=== PATIENT | male | born 1990 | race Caucasian/White ===

== ENCOUNTER 2018-12-05 12:31 | Emergency (ER) | payer OTHER, SELFPAY ==
[2018-12-05 12:37] VITALS: BP 151/82; PULSE 92; RESP 16; TEMP 36.9; O2SAT 98
--- NOTE | 2018-12-05 12:39 | W.ED.GENAD ---
Discharge Plan Disposition Patient Disposition: HOME Discharge Details Chief Complaint: Orthopedic Clinical Impression: Numbness and tingling in left arm Primary Care Provider: Fortunato Boone ED Provider: Divine Sgeal Discharge Instructions Instructions: Paresthesia (ED) Additional Instructions: Try to avoid activities that cause increased symptoms. Try to drive with your right arm. Ice left shoulder after work. Aleve twice daily to help with inflammation. If you develop chest pain, shortness of breath, fevers, weakness, increased pain or other new/worsening symptoms please seek care urgently once again. Otherwise, please keep a primary care appointment on Sunday12/20/2018 at 8:15 AM Referrals: Jimy Palacios DO [OSTEOPATHIC DOCTOR] - 12/20/18 8:15 am Discharge Data Discharge Date/Time-TO BE ENTERED AT DEPARTURE: 12/05/18 13:44 Medical Decision Making Patient a 28-year-old [id number]-mertstif male presenting today with chief complaint of left arm numbness. He reports his symptoms have been present for the past month that he noted them to be more frequent today. He reports it is worse when he is driving with his left arm extended and a 90 degree angle such as when the arm is resting on top of the steering well. 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 States that when hiking to the snow he does not noted any increase in his symptoms but that once again, symptoms are worse when driving. Is not noted any weakness in the left arm. Denies any known trauma. Denies any pain in the neck. Denies any chest pain or shortness of breath. States he became quite anxious today and was concerned he may have been having a cardiac event. EKG was obtained prompted by nursing staff. Reviewed by Dr. Guy who advised no acute ischemic changes. NSR rate 87. Exam is without acute abnormality. He has full ROM, 5/5 strength, intact 2 point discrimination. Normal exam of neck, negative Spurlings. Normal cardiac exam. At this time, no acute abnormality is noted. Discussed case wtih Dr. Guy. She agrees that no emergent issue is noted at this time. History and exam are not consistent with cardiac etiology which is patients primary concern. As pain is primarily with arm extended, this sounds primarily musculoskeletal. Symptoms have been ongoing for the past month. He believes it my have started from sleeping in an unusual position. I advised that he have f/u with PCP, career services officer was able to get appointent with new PCP next week. We discussed new/worsening symptoms and when to seek care urgently once again. All of his questions adn concerns were addressed. Advised NSAID for the next week to help with inflammatory source that may be causing this. HPI General Mode of arrival: ambulatory. Date/Time Provider Initiated Documentation: 12/05/18 12:39. Limitations to Documentation: no limitations. Information obtained by: patient and RN notes reviewed. History of Present Illness 28 year old M presents to the emergency department with the chief complaint of left shoulder numbness, described as moderate, and is localized to the left and upper extremity. Patient distal. Patient started experiencing this month(s) (1) and it has been intermittent. No relieving factors improve symptom(s), Other factors that worsen symptoms (driving with arm extended) . Patient notes no other symptoms.. Patient did receive the following treatments prior to arrival, none Related Data Allergies Allergy/AdvReac Type Severity Reaction Status Date / Time No Known Allergies Allergy Unverified 12/05/18 12:39 General Stated Complaint: Orthopedic LAUREL: 4 Review of Systems Constitutional Reports as per HPI, Denies chills, Denies fever(s), Denies headache(s) and Denies weakness ENT Denies headache(s) Cardiovascular Reports as per HPI, Denies chest pain, Denies syncope and Reports radiating jaw, neck or arm pain Respiratory Reports as per HPI and Denies cough Musculoskeletal Reports as per HPI, Denies deformity, Denies arthralgias, Denies joint swelling, Denies limited range of motion, Reports numbness, Denies radiating pain into limb and Reports tingling Integumentary/Breasts Reports as per HPI, Denies rash and Denies wounds Neurologic Reports as per HPI, Denies syncope, Denies headache(s), Reports numbness, Reports tingling, Reports paresthesias and Denies weakness [facility] Left Knee repair Social History Smoking/Tobacco Use Status: Current-Occasional Drug use: Never Exam Const General: cooperative, healthy appearing, comfortable, no acute distress, well developed and well groomed Nutritional Appearance: average body habitus and well nourished Orientation: alert and awake Neck Neck: normal visual inspection, full ROM, no lymphadenopathy, no meningeal signs and trachea midline Other: Spurling negative Chest Chest: normal inspection of the chest Resp Effort & Inspection: normal respiratory effort, able to speak in complete sentences and no respiratory distress Auscultation: clear to auscultation bilaterally, no rales, no rhonchi and no wheezes Cardio Rate: regular rate Rhythm: regular rhythm Heart Sounds: S1 normal and S2 normal Back/Spine/Pelvis Cervical Spine: normal cervical lordosis, cervical ROM normal, No pain with cervical ROM, No cervical spinal tenderness and No step off deformity Thoracic/Lumbar Spine: thoracic and lumbar spine normal to inspection Skin General skin exam: no rashes or lesions noted Lesions: no lesions Rashes: no rashes Trauma: no lacerations or abrasions Neuro General: alert and awake Cognition: normal cognition Speech: speech normal Gait: normal gait Motor: muscle tone normal throughout Sensory Exam: no sensory deficits noted and normal double simultaneous stimulation (2 point intact in LUE) DTR's: Lt Triceps: 2+ and Lt Biceps: 2+ Extrem Left upper extremity: normal to inspection, full ROM, normal capillary refill, no joint enlargement and shoulder/upper arm Details: inspection abnormal, axillary nerve sensory function normal, normal ROM and other (normal Chad Huber. ); no tenderness, no swelling, no abrasions, no lacerations, no ecchymosis, no crepitus, no deformity and no unsual warmth; no cyanosis and no edema Psych Appearance: grossly normal and well kempt Mental Status: mental status grossly normal Speech and Movement: speech and movement normal Course Vital Signs Temperature 36.9 C 12/05/18 12:37 Pulse 92 H 12/05/18 12:37 Respiratory Rate 16 12/05/18 12:37 Blood Pressure 151/82 H 12/05/18 12:37 Pulse Oximetry 98 12/05/18 12:37 Temperature 36.9 C 12/05/18 12:37 Temperature Source Skin 12/05/18 12:37 Pulse 92 H 12/05/18 12:37 Respiratory Rate 16 12/05/18 12:37 Respiratory Effort Non-Labored 12/05/18 12:37 Blood Pressure 151/82 H 12/05/18 12:37 Blood Pressure Position Sitting 12/05/18 12:37 Pulse Oximetry 98 12/05/18 12:37 Oxygen Delivery Method Room Air 12/05/18 12:37 Oxygen Flow Rate 0 12/05/18 12:37 Pain Level 0 12/05/18 12:37
--- NOTE | 2018-12-05 13:37 | ED.GENADUL_ITS ---
Discharge Plan Disposition Patient Disposition: HOME Discharge Details Chief Complaint: Orthopedic Clinical Impression: Numbness and tingling in left arm Primary Care Provider: Fortunato Boone ED Provider: Divine Segal Discharge Instructions Instructions: Paresthesia (ED) Additional Instructions: Try to avoid activities that cause increased symptoms. Try to drive with your right arm. Ice left shoulder after work. Aleve twice daily to help with inflammation. If you develop chest pain, shortness of breath, fevers, weakness, increased pain or other new/worsening symptoms please seek care urgently once again. Otherwise, please keep a primary care appointment on Sunday12/20/2018 at 8:15 AM Referrals: Jimy Palacios DO [OSTEOPATHIC DOCTOR] - 12/20/18 8:15 am Discharge Data Discharge Date/Time-TO BE ENTERED AT DEPARTURE: 12/05/18 13:44 Medical Decision Making Patient a 28-year-old [id number] male presenting today with chief complaint of left arm numbness. He reports his symptoms have been present for the past month that he noted them to be more frequent today. He reports it is worse when he is driving with his left arm extended and a 90 degree angle such as when the arm is resting on top of the steering well. 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 States that when hiking to the snow he does not noted any increase in his symptoms but that once again, symptoms are worse when driving. Is not noted any weakness in the left arm. Denies any known trauma. Denies any pain in the neck. Denies any chest pain or shortness of breath. States he became quite anxious today and was concerned he may have been having a cardiac event. EKG was obtained prompted by nursing staff. Reviewed by Dr. Guy who advised no acute ischemic changes. NSR rate 87. Exam is without acute abnormality. He has full ROM, 5/5 strength, intact 2 point discrimination. Normal exam of neck, negative Spurlings. Normal cardiac exam. At this time, no acute abnormality is noted. Discussed case wtih Dr. Guy. She agrees that no emergent issue is noted at this time. History and exam are not consistent with cardiac etiology which is patients primary concern. As pain is primarily with arm extended, this sounds primarily musculoskeletal. Symptoms have been ongoing for the past month. He believes it my have started from sleeping in an unusual position. 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 We discussed new/worsening symptoms and when to seek care urgently once again. All of his questions adn concerns were addressed. Advised NSAID for the next week to help with inflammatory source that may be causing this. HPI General Mode of arrival: ambulatory . Date/Time Provider Initiated Documentation: 12/05/18 12:39 . Limitations to Documentation: no limitations . Information obtained by: patient and RN notes reviewed . History of Present Illness 28 year old M presents to the emergency department with the chief complaint of left shoulder numbness, described as moderate, and is localized to the left and upper extremity. Patient distal. Patient started experiencing this month(s) (1) and it has been intermittent. No relieving factors improve symptom(s), Other factors that worsen symptoms (driving with arm extended) . Patient notes no other symptoms.. Patient did receive the following treatments prior to arrival, none Related Data Allergies Allergy/AdvReac Type Severity Reaction Status Date / Time No Known Allergies Allergy Unverified 12/05/18 12:39 General Stated Complaint: Orthopedic LAUREL: 4 Review of Systems Constitutional Reports as per HPI, Denies chills, Denies fever(s), Denies headache(s) and Denies weakness ENT Denies headache(s) Cardiovascular Reports as per HPI, Denies chest pain, Denies syncope and Reports radiating jaw, neck or arm pain Respiratory Reports as per HPI and Denies cough Musculoskeletal Reports as per HPI, Denies deformity, Denies arthralgias, Denies joint swelling, Denies limited range of motion, Reports numbness, Denies radiating pain into limb and Reports tingling Integumentary/Breasts Reports as per HPI, Denies rash and Denies wounds Neurologic Reports as per HPI, Denies syncope, Denies headache(s), Reports numbness, Reports tingling, Reports paresthesias and Denies weakness [facility] History Left Knee repair Social History Smoking/Tobacco Use Status: Current-Occasional Drug use: Never Exam Const General: cooperative, healthy appearing, comfortable, no acute distress, well developed and well groomed Nutritional Appearance: average body habitus and well nourished Orientation: alert and awake Neck Neck: normal visual inspection, full ROM, no lymphadenopathy, no meningeal signs and trachea midline Other: Spurling negative Chest Chest: normal inspection of the chest Resp Effort & Inspection: normal respiratory effort, able to speak in complete sentences and no respiratory distress Auscultation: clear to auscultation bilaterally, no rales, no rhonchi and no wheezes Cardio Rate: regular rate Rhythm: regular rhythm Heart Sounds: S1 normal and S2 normal Back/Spine/Pelvis Cervical Spine: normal cervical lordosis, cervical ROM normal, No pain with cervical ROM, No cervical spinal tenderness and No step off deformity Thoracic/Lumbar Spine: thoracic and lumbar spine normal to inspection Skin General skin exam: no rashes or lesions noted Lesions: no lesions Rashes: no rashes Trauma: no lacerations or abrasions Neuro General: alert and awake Cognition: normal cognition Speech: speech normal Gait: normal gait Motor: muscle tone normal throughout Sensory Exam: no sensory deficits noted and normal double simultaneous stimulation (2 point intact in LUE) DTR's: Lt Triceps: 2+ and Lt Biceps: 2+ Extrem Left upper extremity: normal to inspection, full ROM, normal capillary refill, no joint enlargement and shoulder/upper arm Details: inspection abnormal, axillary nerve sensory function normal, normal ROM and other (normal Neer, Haw kins. ); no tenderness, no swelling, no abrasions, no lacerations, no ecchymosis, no crepitus, no deformity and no unsual warmth; no cyanosis and no edema Psych Appearance: grossly normal and well kempt Mental Status: mental status grossly normal Speech and Movement: speech and movement normal Course Vital Signs Temperature 36.9 C 12/05/18 12:37 Pulse 92 H 12/05/18 12:37 Respiratory Rate 16 12/05/18 12:37 Blood Pressure 151/82 H 12/05/18 12:37 Pulse Oximetry 98 12/05/18 12:37 Temperature 36.9 C 12/05/18 12:37 Temperature Source Skin 12/05/18 12:37 Pulse 92 H 12/05/18 12:37 Respiratory Rate 16 12/05/18 12:37 Respiratory Effort Non-Labored 12/05/18 12:37 Blood Pressure 151/82 H 12/05/18 12:37 Blood Pressure Position Sitting 12/05/18 12:37 Pulse Oximetry 98 12/05/18 12:37 Oxygen Delivery Method Room Air 12/05/18 12:37 Oxygen Flow Rate 0 12/05/18 12:37 Pain Level 0 12/05/18 12:37
--- NOTE | 2018-12-05 14:13 | PDOC.ERCMPRO ---
Care Management Progress Note 12/06-Divine MOONEY requested assistance with a PCP f/u for arm numbness. Patient states he has his first appt with [facility] in four weeks. Divine would like f/u in two weeks. Called [facility] and spoke with Katya. Katya stated that there is not a new patient appt yet. [facility] just send him the patient packet to complete. Katya did schedule Stuart for December [address] Palacios. Katya stated that they would see Stuart in f/u and he will also have his new patient appt at the same time. Divine MOONEY aware of the appt and patient given an appt card.
--- NOTE | 2018-12-05 14:16 | CMPROGNOTE_ITS ---
Care Management Progress Note 12/06-Divine MOONEY requested assistance with a PCP f/u for arm numbness. Patient states he has his first appt with [facility] in four weeks. Divine would like f/u in two weeks. Called [facility] and spoke with Katya. Katya stated that there is not a new patient appt yet. [facility] just send him the patient packet to complete. Katya did schedule Stuart for December [address] Palacios. Katya stated that they would see Stuart in f/u and he will also have his new patient appt at the same time. Divine MOONEY aware of the appt and patient given an appt card.
== END 2018-12-05 13:44 | disposition home or self-care (01) ==
PROVIDERS: Emergency Provider Physician Assistant; PCP Pediatrics
DX: R20.2 Paresthesia of skin (principal)
CPT/HCPCS: 93005; 99283; 93010

== ENCOUNTER 2019-07-13 09:45 | Emergency (ER) | payer OTHER, SELFPAY ==
[2019-07-13 09:51] VITALS: BP 140/83; PULSE 87; RESP 20; TEMP 36.7; O2SAT 96
--- NOTE | 2019-07-13 10:01 | ED.GENADUL_ITS ---
Discharge Plan Disposition Patient Disposition: HOME Condition: Good Discharge Details Chief Complaint: Orthopedic Clinical Impression: Contusion of foot, Ankle sprain Primary Care Provider: Jimy Palacios ED Provider: Divine Segal Home Meds and New Rx's Prescriptions: Continued Men's Multivitamin Gummies 200 mcg tablet,chewable 200 mcg PO DAILY RF: 0 omega 8-lsl-lbz-fish oil [Fish Oil] 1,000 mg (120 mg-180 mg) capsule 1 cap PO DAILY RF: 0 vitamin B complex capsule 1 cap PO DAILY RF: 0 magnesium oxide 200 mg magnesium tablet 200 mg PO DAILY RF: 0 coenzyme Q10 60 mg tablet 60 mg PO DAILY RF: 0 Discharge Instructions Instructions: Ankle Sprain (ED), Foot Contusion (ED) Additional Instructions: Encourage rest, ice, elevation. Tylenol and/or ibuprofen as needed for discomfort. Continue with the ankle brace to help with discomfort. Please avoid activities that cause increased discomfort. Wear supportive shoes. If you develop new or worsening symptoms please seek care urgently once again. Ot herwise, please follow-up with primary care in 2 weeks if pain is not improving. Stand Alone Forms: Work Release Referrals: Jimy Palacios DO [Primary Care Provider] - Discharge Data Discharge Date/Time-TO BE ENTERED AT DEPARTURE: 07/13/19 11:18 Medical Decision Making Patient is a 29-year-old male presenting today with chief complaint of right foot and ankle pain. He reports that yesterday he slipped while on a very, icy deck and fell approximately 4 feet. States that he landed sideways and took the brunt of it for his ongoing lateral aspect of his right foot and ankle. Denies other injury the time of the incident. Did not strike his head, no loss of consciousness. States that since that time he has had difficulty with ambulation secondary to the discomfort, particularly in the dorsal lateral foot. On exam, he does have notable swelling on the dorsal lateral aspect of the foot. No pain over the proximal fifth metatarsal. Pain also over the lateral malleolus. He does have good range of motion of the ankle but has pain with plantarflexion. Sensation and vascular exam normal. Plan for imaging. He did take Aleve this morning, will augment this with Tylenol. FINDINGS: Bones/joints: There is no evidence of acute fracture.There is no evidence of malalignment or dislocation. Soft tissues: No soft tissue swelling IMPRESSION: There is no evidence of acute fracture.There is no evidence of malalignment or dislocation. FINDINGS: Bones/joints: There is no evidence of acute fracture.There is no evidence of malalignment or dislocation. Soft tissues: Normal. IMPRESSION: There is no evidence of acute fracture.There is no evidence of malalignment or dislocation. Discussed findings with the patient. Encouraged rest, ice, elevation. Tylenol and/or Ibuprofen as needed for discomfort. Fitted with lace up ankle brace. Encouraged RICE. We discussed activities that she should avoid. He was given return precautions. Advise follow-up with primary care in 2 weeks if not improving. All his questions and concerns were addressed and he is in agreement this plan. HPI General Mode of arrival: ambulatory . Date/Time Provider Initiated Documentation: 07/13/19 10:01 . Limitations to Documentation: no limitations . Information obtained by: patient and RN notes reviewed . History of Present Ill leta 29 year old M presents to the emergency department with the chief complaint of right foot and ankle pain, described as moderate, with intensity rated at 7. Quality is described as aching, and is localized to the right and lower extremity. Patient reports no radiation. Patient started experiencing this day(s) (1) and it has been constant. Immobilization improves symptom(s), Movement worsens symptoms . Patient notes no other symptoms.. Patient did receive the following treatments prior to arrival, NSAID Related Data Home Medications Medication Instructions Recorded Confirmed coenzyme Q10 60 mg tablet 60 mg PO DAILY 12/20/18 07/13/19 magnesium oxide 200 mg PO DAILY tab 12/20/18 07/13/19 multivit with min-folic acid 200 200 mcg PO DAILY tab 12/20/18 07/13/19 mcg chewable tablet omega 3-odg-svl-fish oil 1,000 mg 1 cap PO DAILY 12/20/18 07/13/19 (120 mg-180 mg) capsule vitamin B complex 1 cap PO DAILY 12/20/18 07/13/19 Allergies Allergy/AdvReac Type Severity Reaction Status Date / Time No Known Allergies Allergy Verified 07/13/19 09:53 General Stated Complaint: Orthopedic LAUREL: 3 Review of Systems Constitutional Constitutional: Reports as per HPI, Denies chills, Denies fever(s), Denies headache(s) and Denies weakness ENT Ears, Nose, Mouth, and Throat: Denies headache(s) Cardiovascular Cardiovascular: Reports as per HPI Respiratory Respiratory: Reports as per HPI and Denies cough Musculoskeletal Musculoskeletal: Reports as per HPI and Denies tingling Integumentary/Breasts Skin/Breast: Reports as per HPI, Denies rash and Denies wounds Neurologic Neurologic: Reports as per HPI, Denies headache(s), Denies tingling, Denies paresthesias and Denies weakness [facility] Surgical History Left Knee repair Pt states he had a surgery to his knee about 5 or 6 years ago (2006/2007).HE 8.8.13 Social History Smoking/Tobacco Use Status: Current-Occasional Tobacco Type: smokeless tobacco Smokeless tobacco user: chewing tobacco Quit status: quit date established Alcohol Intake: current Alcohol Intake frequency: a few times a week Details: occasionally has a beer, sometimes has 3 mixed drinks at a time when social Drug use: Never Substance use type: does not use Household members: significant other and other Number of Children: 1 current occupation: works for [employer] What is your relationship status?: living with partner Panel score (0-1 are the most socially isolated patients): 1 What type of physical activity do you participate in: walking Seatbelt use: sometimes Helmet use: Yes Drive intox or ride w/intox substitute bus driver: No Water heater temp set <120 deg: Yes Working smoke detector in home: Yes Fire extinguisher in home: Yes Carbon monox detector in home: Yes Firearms in home: Yes (in a safe) Firearms unloaded and locked: Yes Do you feel safe at home: Yes Do you feel safe in your relationship?: Yes Exam Const General: cooperative, healthy appearing, comfortable, no acute distress, well developed and well groomed Nutritional Appearance: average body habitus and well nourished Orientation: alert and awake Resp Effort & Inspection: normal respiratory effort, able to speak in complete sentences and no respiratory distress Cardio Rate: regular rate Rhythm: regular rhythm Skin General skin exam: no rashes or lesions noted Lesions: no lesions Rashes: no rashes Trauma: no lacerations or abrasions Neuro General: alert and awake Cognition: normal cognition Speech: speech normal Gait: normal gait Motor: muscle tone normal throughout Sensory Exam: no sensory deficits noted Extrem Right lower extremity: full ROM, normal capillary refill, knee (No pain over the proximal fibula), lower leg Details: normal to inspection and no edema; no tenderness, no localized swelling, no palpable cords and no crepitus, ankle Details: normal to inspection, tenderness Location: of the lateral malleolus; not of the achilles tendon, no edema and normal ROM; no swelling, no unusual warmth, no abrasions, no ecchymosis, no crepitus and achilles tendon exam normal and foot Details: normal capillary refill, tenderness Location: of the dorsal foot Location: laterally and of the lateral foot; not of the plantar foot, not of the great toe, not of any other digit, not of the calcaneus, not of the medial foot, not of the mid foot and not of the base of the 5th metatarsal, vascular exam Details: dorsalis pedis pulse present, posterior tibial pulse present and normal capillary refill and motor-sensory exam Details: light-touch normal; no unusual warmth, no abrasion, no laceration, no ecchymosis and no crepitus; abnormal to inspection (Swelling as described below) Ankle/foot/toe images: 1. Area of swelling and discomfort with palpation. No pain over the proximal fifth metatarsal. Psych Appearance: grossly normal and well kempt Mental Status: mental status grossly normal Speech and Movement: speech and movement normal Course Vital Signs Vital signs: Vital Signs Temperature 36.7 C 07/13/19 09:51 Pulse 87 07/13/19 09:51 Respiratory Rate 20 07/13/19 09:51 Blood Pressure 140/83 07/13/19 09:51 Pulse Oximetry 96 07/13/19 09:51 Temperature 36.7 C 07/13/19 09:51 Temperature Source Tympanic 07/13/19 09:51 Pulse 87 07/13/19 09:51 Respiratory Rate 20 07/13/19 09:51 Respiratory Effort Non-Labored 07/13/19 09:54 Blood Pressure 140/83 07/13/19 09:51 Blood Pressure Position Sitting 07/13/19 09:51 Pulse Oximetry 96 07/13/19 09:51 Oxygen Delivery Method Room Air 07/13/19 09:51 Oxygen Flow Rate 0 07/13/19 09:51 Pain Level 7 07/13/19 09:54
--- NOTE | 2019-07-13 10:06 | DI.RAD_ITS ---
EXAM: XR ANKLE RT COMPLETE INDICATION: lateral malleolus pain. COMPARISON: No exams were available for comparison TECHNIQUE: 2D digital imaging was performed. FINDINGS: No fracture or ankle mortise widening is seen. The talar dome appears intact. IMPRESSION: Negative right ankle.
--- NOTE | 2019-07-13 10:06 | DI.RAD_ITS ---
EXAM: XR FOOT RT COMPLETE INDICATION: fall, lateral pain. COMPARISON: No exams were available for comparison TECHNIQUE: 2D digital imaging was performed. FINDINGS: No fracture or dislocation is seen. IMPRESSION: Negative right foot.
[2019-07-13] MEDS: Acetaminophen 500 MG TAB 1000 MG PO (10:10)
--- NOTE | 2019-07-13 10:33 | DI.VRAD_ITS ---
PROCEDURE INFORMATION: Exam: XR Right Ankle Exam date and time: 07/13/2019 10:20 AM Clinical history: 29 years old, male; Other: Lateral malleolus pain TECHNIQUE: Imaging protocol: XR Right ankle. Views: 3 or more views. COMPARISON: No relevant prior studies available. FINDINGS: Bones/joints: There is no evidence of acute fracture.There is no evidence of malalignment or dislocation. Soft tissues: No soft tissue swelling IMPRESSION: There is no evidence of acute fracture.There is no evidence of malalignment or dislocation. Dictated and Authenticated by: Darnell Cabrera MD. Ordering:SHANTANU Haskins MD
--- NOTE | 2019-07-13 10:34 | DI.VRAD_ITS ---
PROCEDURE INFORMATION: Exam: XR Right Foot Complete Exam date and time: 07/13/2019 10:20 AM Clinical history: 29 years old, male; Other: Fall, lateral pain TECHNIQUE: Imaging protocol: XR Right foot. Views: 3 or more views. COMPARISON: No relevant prior studies available. FINDINGS: Bones/joints: There is no evidence of acute fracture.There is no evidence of malalignment or dislocation. Soft tissues: Normal. IMPRESSION: There is no evidence of acute fracture.There is no evidence of malalignment or dislocation. Dictated and Authenticated by: Darnell Cabrera MD. Ordering:SHANTANU Haskins MD
== END 2019-07-13 11:18 | disposition home or self-care (01) ==
PROVIDERS: Emergency Provider Physician Assistant; PCP Family Medicine
DX: S93.401A Sprain of unspecified ligament of right ankle, initial encounter (principal); S90.31XA Contusion of right foot, initial encounter; W00.2XXA Other fall from one level to another due to ice and snow, initial encounter
CPT/HCPCS: 99284; 73610; 73630; 99282; L1902

== ENCOUNTER 2022-01-29 11:32 | Emergency (ER) | payer OTHER, SELFPAY ==
[2022-01-29 11:48] VITALS: BP 128/72; PULSE 91; RESP 14; TEMP 36.8; O2SAT 99
--- NOTE | 2022-01-29 11:52 | ED.GENADUL_ITS ---
Discharge Plan Disposition Patient Disposition: HOME Condition: Stable Discharge Details Clinical Impression: Left knee sprain Primary Care Provider: Jimy Palacios ED Provider: Alia Guy Home Meds and New Rx's Prescriptions: Continued Men's Multivitamin Gummies 200 mcg tablet,chewable 200 mcg PO DAILY vitamin B complex capsule 1 cap PO DAILY hydrocortisone 2.5 % cream 1 applic topical TID PRN (Reason: Hemorrhoid) Qty: 20 0RF Rx Instructions: Apply thin layer to painful area of rectum up to 3x/d Discharge Instructions Instructions: Knee Sprain (ED) Additional Instructions: Your x-ray today is reassuring and shows no evidence of acute concerning or significant findings. Your symptoms may be due to a ligament strain in your left knee. It is recommended that you rest, ice and elevate your left leg is much as possible. Alternate tylenol and motrin as needed and directed for pain. Follow-up with your scheduled appointment with orthopedics next month. You have been placed on orthopedic follow-up list to potentially schedule an earlier foll ow-up appointment if possible. Return immediately to the emergency department if you develop any worsening or new concerning symptoms. Referrals: Blake Stanley MD [ [facility] STAFF PHYSICIAN] - Discharge Data Discharge Date/Time-TO BE ENTERED AT DEPARTURE: 01/29/22 14:15 Discharge Physician: Alia Guy Medical Decision Making 32-year-old male with a history of left ACL repair 15 years ago with history of PCL injury treated nonoperatively a few years ago presents with left knee pain after twisting injury a few days ago. Left knee appears normal to inspection without cellulitis, edema or obvious trauma. He has fairly normal range of motion without ligamentous laxity, clicking or significant pain. He is neurovascularly intact. Patient referred for x-ray which was unremarkable. Patient placed in Aftab wrap. Discussed providing hinged knee brace that he would rather take for home. He declined crutches. Advised on importance of rest, ice and elevation. Patient placed on orthopedic follow-up list to see if he can obtain an earlier follow-up appointment than March 03 as he is having increased pain. Usual and customary return precautions given prior to discharge. Medical Records Medical records reviewed: Yes I reviewed the patient's medical records. Imaging Data Radiologic Study: Radiologist's impression: XR Left Knee Exam date and time: 01/29/2022 12:40 PM Age: 32 years old Clinical indication: Patient HX: Left knee pain, h/o knee surgery, assess hardware; Additional info: Surgery 15 years ago TECHNIQUE: Imaging protocol: XR Left knee. Views: 3 views. COMPARISON: No relevant prior studies available. FINDINGS: Bones/joints: Intact 3 screws traversing lateral aspect of proximal tibia. No evidence of acute osseous injury or significant arthrosis. No suprapatellar joint effusion. Soft tissues: No acute abnormality. IMPRESSION: No radiographic evidence of acute osseous abnormality or hardware complication. HPI General Mode of arrival: ambulatory . Date/Time Provider Initiated Documentation: 01/29/22 11:33 . Limitations to Documentation: no limitations . Information obtained by: patient . HPI Narrative: Patient is a 32-year-old male with a history of left ACL repair approximately 15 years ago after a sports related injury in addition to a PCL tear treated nonoperatively a few years ago presents with left knee pain after a twisting injury at work 3 days ago. Patient states his left foot was caught in a machine at work and he had a sudden jerk and twisted his left knee. States this pain is intermittent and sharp but mostly feels pressure within the knee and feels like it locks up at times. He states the pain is mostly in his medial knee. He has been taking naproxen as needed for pain relief. Related Data Home Medications Medication Instructions Recorded Confirmed multivitamin with minerals-folic 200 mcg PO DAILY 12/20/18 01/29/22 acid 200 mcg chewable tablet (Men's Multivitamin Gummies) vitamin B complex 1 cap PO DAILY 12/20/18 01/29/22 hydrocortisone 2.5 % topical cream 1 applic topical TID PRN 08/29/21 01/29/22 Hemorrhoid #20 grams Previous Rx's Medication Instructions Recorded hydrocortisone 2.5 % topical cream 1 applic topical TID PRN 08/29/21 Hemorrhoid #20 grams Allergies Allergy/AdvReac Type Severity Reaction Status Date / Time No Known Allergies Allergy Verified 01/29/22 11:52 General Stated Complaint: Orthopedic LAUREL: 4 Review of Systems All systems reviewed & are unremarkable except as noted in HPI and below Constitutional Constitutional: Reports as per HPI, Denies chills and Denies fever(s) Eyes Eyes: Denies blurry vision ENT Ears, Nose, Mouth, and Throat: Denies dizziness, Denies sore throat and Denies throat swelling Cardiovascular Cardiovascular: Denies chest pain and Denies dyspnea Respiratory Respiratory: Denies cough and Denies dyspnea Gastrointestinal Gastrointestinal: Denies abdominal pain, Denies diarrhea and Denies vomiting Genitourinary Genitourinary: Denies hematuria and Denies dysuria Musculoskeletal Musculoskeletal: Denies back pain and Denies numbness Comments: L knee pain Integumentary/Breasts Skin/Breast: Denies lesions and Denies rash Neurologic Neurologic: Denies dizziness, Denies localized weakness and Denies numbness Allergic/Immunologic Allergic/Immunologic: Denies throat swelling PFSH All Active Problems (Updated 01/29/22 @ 13:16 by Alia Guy DO) Left knee sprain (Acute) BRBPR (bright red blood per rectum) (Acute) Medical History (Updated 01/29/22 @ 13:16 by Alia Guy DO) No significant past medical history Surgical History Left Knee repair Pt states he had a surgery to his knee about 5 or 6 years ago ().HE 8.8.13 Family History (Updated 08/29/21 @ 15:02 by Ivonne Linn NP) Other Diabetes Social History Smoking/Tobacco Use Status: Current-Occasional Tobacco Type: smokeless tobacco Smokeless tobacco user: chewing tobacco Quit status: quit date established Smoking risk assessment performed?: Yes Alcohol Intake: current Alcohol Intake frequency: a few times a week Details: occasionally has a beer, sometimes has 3 mixed drinks at a time when social Drug use: Never Substance use type: does not use Household members: significant other and other Number of Children: 1 current occupation: works for [employer] What is your relationship status?: living with partner Panel score (0-1 are the most socially isolated patients): 1 What type of physical activity do you participate in: walking Seatbelt use: sometimes Helmet use: Yes Drive intox or ride w/intox driver license reviewing officer: No Water heater temp set <120 deg: Yes Working smoke detector in home: Yes Fire extinguisher in home: Yes Carbon monox detector in home: Yes Firearms in home: Yes (in a safe) Firearms unloaded and locked: Yes Do you feel safe at home: Yes Do you feel safe in your relationship?: Yes Exam Const General: cooperative, healthy appearing and no acute distress Orientation: alert, awake and oriented x3 HENMT Head: normal to inspection Mouth: oral mucosae normal Eyes General: appearance normal, both eyes and all related structures Neck Neck: normal visual inspection Resp Effort & Inspection: normal respiratory effort and able to speak in complete sentences Cardio Rate: regular rate Skin General skin exam: no rashes or lesions noted Neuro General: patient alert, patient awake and patient oriented x3 Motor: muscle tone normal throughout Extrem General: normal to inspection Other: L lower extremity: Knee: No pain with valgus or varus stress. Negative anterior posterior drawer test. Negative Juan's test. Left DP/PT pulses intact. Psych Appearance: grossly normal Affect: normal affect Course Vital Signs Vital signs: Vital Signs Temperature 98.2 F 01/29/22 11:48 Pulse 91 H 01/29/22 11:48 Respiratory Rate 14 01/29/22 11:48 Blood Pressure 128/72 01/29/22 11:48 Pulse Oximetry 99 01/29/22 11:48 Temperature 98.2 F 01/29/22 11:48 Temperature Source Temporal Artery Scan 01/29/22 11:48 Pulse 91 H 01/29/22 11:48 Respiratory Rate 14 01/29/22 11:48 Blood Pressure 128/72 01/29/22 11:48 Blood Pressure Position Sitting 01/29/22 11:48 Pulse Oximetry 99 01/29/22 11:48 Oxygen Delivery Method Room Air 01/29/22 11:48 Oxygen Flow Rate 0 01/29/22 11:48 Pain Level 2 01/29/22 11:48
--- NOTE | 2022-01-29 12:00 | DI.RAD_ITS ---
Exam(s) XR KNEE LT 3V AP,LAT,KATIE EXAM: XR KNEE LT 3V AP,LAT,KATIE CLINICAL HISTORY: left knee pain, h/o knee surgery, assess hardware. TECHNIQUE: 2D digital imaging was performed. COMPARISON: CR LEFT KNEE 3 VIEW COMPLETE from 03/22/2013 FINDINGS: 3 views Compared to 03/22/2013 Again noted are 3 AP orientated screws from prior proximal tibial osteotomy at level the tibial tuber karolyn. No screw loosening and no radiographic evidence of osteomyelitis. There is also no evidence of joint effusion. No obvious joint space narrowing. No osteophytes. Bone density normal. No osseou s lesions. IMPRESSION: Stable hardware appearance at the prior tibial osteotomy site. No acute osseous findings. No joint effusion noted DATA REPOSITORY: RADIATION DOSE DELIVERED:
--- NOTE | 2022-01-29 12:54 | DI.VRAD_ITS ---
PROCEDURE INFORMATION: Exam: XR Left Knee Exam date and time: 01/29/2022 12:40 PM Age: 32 years old Clinical indication: Patient HX: Left knee pain, h/o knee surgery, assess hardware; Additional info: Surgery 15 years ago TECHNIQUE: Imaging protocol: XR Left knee. Views: 3 views. COMPARISON: No relevant prior studies available. FINDINGS: Bones/joints: Intact 3 screws traversing lateral aspect of proximal tibia. No evidence of acute osseous injury or significant arthrosis. No suprapatellar joint effusion. Soft tissues: No acute abnormality. IMPRESSION: No radiographic evidence of acute osseous abnormality or hardware complication. Dictated and Authenticated by: Boby Pike MD. Ordering:NICK Rojo MD
== END 2022-01-29 14:15 | disposition home or self-care (01) ==
PROVIDERS: Emergency Provider Physician Assistant; PCP Family Medicine
DX: S83.92XA Sprain of unspecified site of left knee, initial encounter (principal); X50.1XXA Overexertion from prolonged static or awkward postures, initial encounter; Z98.890 Other specified postprocedural states; Y99.0 Civilian activity done for income or pay
CPT/HCPCS: 73562; 99283

== ENCOUNTER → 2022-01-31 12:21 | Outpatient (CLI) | payer OTHER, SELFPAY ==
--- NOTE | 2022-01-31 09:00 | DI.MRI_ITS ---
Exam(s) MR LOWER JOINT LT WO EXAM: MR LOWER JOINT LT WO CLINICAL HISTORY: LEFT KNEE INJURY, ACUTE MENISCAL TEAR, SPRAIN, S83.207A, S83.92XA. TECHNIQUE: Multiplanar multisequence MRI was performed. COMPARISON: CR,XR XR KNEE LT 3V AP,LAT,KATIE from 01/29/2022 FINDINGS: BONES: There is no fracture or contusion pattern. Metallic artifact and proximal tibia are related to metallic screws. JOINTS: Articular cartilage is unremarkable. No effusion is present. TENDONS: Extensor mechanism: Unremarkable. Medial retinaculum: Unremarkable. Lateral retinaculum: Unremarkable. Popliteus: Unremarkable. MUSCLES: Unremarkable. MENISCI: The medial meniscus is unremarkable. The lateral meniscus is unremarkable. SOFT TISSUES: Unremarkable. LIGAMENTS: Anterior Cruciate: Unremarkable. Posterior Cruciate: Unremarkable. Medial Collateral:Unremarkable. Lateral Collateral: Unremarkable. IMPRESSION: Artifact the proximal tibia related to metallic screws. No evidence of ligament or meniscal tear. DATA REPOSITORY:
== END ==
PROVIDERS: PCP Family Medicine; Visit Provider Student in an Organized Health Care Education/Training Program
DX: S89.92XA Unspecified injury of left lower leg, initial encounter; X58.XXXA Exposure to other specified factors, initial encounter
CPT/HCPCS: 73721

== ENCOUNTER 2022-08-26 12:53 | Emergency (ER) | payer BC, SELFPAY ==
[2022-08-26 12:59] VITALS: BP 147/84; PULSE 76; RESP 16; TEMP 36.9; O2SAT 99
[2022-08-26 13:32] VITALS: BP 124/78; PULSE 88; RESP 19; TEMP 37.5; O2SAT 96
--- NOTE | 2022-08-26 14:58 | W.ED.GENAD ---
Discharge Plan Disposition Patient Disposition: Home Condition: Improving Discharge Details Clinical Impression: Corneal abrasion Primary Care Provider: Jimy Palacios ED Provider: Jean Claude Nye Home Meds and New Rx's Prescriptions: New ofloxacin 0.3 % drops See Rx Instructions .ROUTE .COMPLEX Qty: 5 0RF Rx Instructions: put 1-2 drps into affected eye(s) every 2-4 h x 2 days, then 1-2 drps 4 times/day days 3-7 No Action Men's Multivitamin Gummies 200 mcg tablet,chewable 200 mcg PO DAILY vitamin B complex capsule 1 cap PO DAILY hydrocortisone 2.5 % cream 1 applic topical TID PRN (Reason: Hemorrhoid) Qty: 20 0RF Rx Instructions: Apply thin layer to painful area of rectum up to 3x/d Discharge Instructions Instructions: Corneal Abrasion (ED) Additional Instructions: Please use eyedrops as instructed. Return to the emergency room for any worsening symptoms. Medical Decision Making 32-year-old male presents 1 day after sustaining left eye injury, believes he may have gotten a piece of sawdust in his eye was working with wood yesterday, clear tearing of left eye, mild injected conjunctiva, OD 20/20 OS 20/20, will instill tetracaine and fluorescein for examination for corneal abrasion and/or foreign body. 3: 26 evidence of small corneal abrasion upper left aspect of left eye, no foreign body noted, lid everted and irrigated lower lid pulled back and irrigated. Patient feeling better. Will be started on ofloxacin Home care instructions and return precautions given HPI General Date/Time Provider Initiated Documentation: 08/26/22 14:45. HPI Narrative: 32-year-old male was working with wood material yesterday, believes he got a piece of sawdust in his eye, tearful painful left eye. Related Data Home Medications Medication Instructions Recorded Confirmed multivitamin with minerals-folic 200 mcg PO DAILY 12/20/18 08/26/22 acid 200 mcg chewable tablet (Men's Multivitamin Gummies) vitamin B complex 1 cap PO DAILY 12/20/18 08/26/22 hydrocortisone 2.5 % topical cream 1 applic topical TID PRN 08/29/21 08/26/22 Hemorrhoid #20 grams ofloxacin 0.3 % eye drops See Rx Instructions ophthalmic 08/26/22 (eye) .COMPLEX #5 mL Previous Rx's Medication Instructions Recorded hydrocortisone 2.5 % topical cream 1 applic topical TID PRN 08/29/21 Hemorrhoid #20 grams ofloxacin 0.3 % eye drops See Rx Instructions ophthalmic 08/26/22 (eye) .COMPLEX #5 mL Allergies Allergy/AdvReac Type Severity Reaction Status Date / Time No Known Allergies Allergy Verified 08/26/22 13:03 General Stated Complaint: EyeProblem LAUREL: 4 Review of Systems Narrative: Review of Systems Constitutional: negative Eyes: Eye pain ENT: negative Cardiovascular: negative Respiratory: negative Gastrointestinal: negative : negative Musculoskeletal: negative Skin: negative Neurologic: negative Psych: negative PFSH All Active Problems (Updated 08/26/22 @ 15:27 by Jean Claude Nye MD) Corneal abrasion (Acute) Acute meniscal tear of left knee (Acute 01/26/22) BRBPR (bright red blood per rectum) (Acute) Medical History (Updated 08/26/22 @ 15:27 by Jean Claude Nye MD) No significant past medical history Surgical History Left Knee repair Pt states he had a surgery to his knee about 5 or 6 years ago ().HE 8.8.13 Family History (Updated 08/29/21 @ 15:02 by Ivonne Linn NP) Other Diabetes Social History Smoking/Tobacco Use Status: Current-Occasional Tobacco Type: smokeless tobacco Smokeless tobacco user: chewing tobacco Quit status: quit date established Smoking risk assessment performed?: Yes Alcohol Intake: current Alcohol Intake frequency: a few times a week Details: occasionally has a beer, sometimes has 3 mixed drinks at a time when social Drug use: Never Substance use type: does not use Household members: significant other and other Number of Children: 1 current occupation: works for [employer] Current gender identity: male What is your relationship status?: living with partner Panel score (0-1 are the most socially isolated patients): 1 What type of physical activity do you participate in: walking Seatbelt use: sometimes Helmet use: Yes Drive intox or ride w/intox 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 Water heater temp set <120 deg: Yes Working smoke detector in home: Yes Fire extinguisher in home: Yes Carbon monox detector in home: Yes Firearms in home: Yes (in a safe) Firearms unloaded and locked: Yes Do you feel safe at home: Yes Do you feel safe in your relationship?: Yes Exam Narrative Exam Narrative: Physical Examination General: alert, awake, cooperative, resting comfortably, no acute distress HEENT: normocephalic, atraumatic; PERRL, EOM intact, mildly injected left eye conjunctiva, OD 20/20, OS 20/20, clear tearing of left eye Neck: supple, trachea midline; full ROM Neuro: AAOx3, normal speech, moving all extremities Psych: Appropriate mood and affect Course Vital Signs Vital signs: Vital Signs Temperature 36.9 C 08/26/22 12:59 Pulse 76 08/26/22 12:59 Respiratory Rate 16 08/26/22 12:59 Blood Pressure 147/84 H 08/26/22 12:59 Pulse Oximetry 99 08/26/22 12:59 Temperature 37.5 C 08/26/22 13:32 Temperature Source Skin 08/26/22 13:32 Pulse 88 08/26/22 13:32 Respiratory Rate 19 08/26/22 13:32 Respiratory Effort Non-Labored 08/26/22 13:01 Blood Pressure 124/78 08/26/22 13:32 Blood Pressure Position Sitting 08/26/22 12:59 Pulse Oximetry 96 08/26/22 13:32 Oxygen Delivery Method Room Air 08/26/22 13:32 Oxygen Flow Rate 0 08/26/22 13:32 Pain Level 7 08/26/22 13:32 PAWSS Have you Been Recently Intoxicated or Drunk Within the Last 30 days?: No Have you Ever Experienced Previous Episodes of Alcohol Withdrawal?: No Have you ever Experienced Withdrawal Seizures?: No Have you ever Experienced Delirium Tremens(DT)s?: No Have you ever undergone Alcohol Rehabilitation Treatment (i.e, inpt ot outpatient treatment programs)?: No Have you ever Experienced Blackouts?: No Have you ever Combined Alcohol with other Downers within the last 90 days?: No Have you ever Combined Alcohol with any other Substance of Abuse during the last 90 days?: No Positive Blood Alcohol level on Presentation? [PCS.BAL]: No Evidence of Increased Autonomic Activity (i.e. HR>120, tremor, sweating, agitation, nausea)?: No Result: 0
[2022-08-26 15:57] VITALS: BP 124/78; PULSE 88; RESP 19; TEMP 37.5; O2SAT 96
== END 2022-08-26 16:01 | disposition home or self-care (01) ==
PROVIDERS: Emergency Provider Emergency Medicine; PCP Family Medicine
DX: S05.02XA Injury of conjunctiva and corneal abrasion without foreign body, left eye, initial encounter (principal); X58.XXXA Exposure to other specified factors, initial encounter
CPT/HCPCS: 99283

== ENCOUNTER 2022-10-26 14:47 | Outpatient (RCR) | payer BC, SELFPAY ==
--- NOTE | 2022-10-26 14:45 | HOLTER_ITS ---
APPROVED REPORT Conclusion This is a Holter monitor ordered for dizziness. Monitoring lasted 18 hours 37 minutes Predominant rhythm was sinus with an average heart rate of 77. Minimum was 54. Maximum heart rate w as 176 and was associated with athletic exertion There were very rare ventricular ectopic beats There was no atrial fibrillation, no SVT, no high-grade AV block, no pauses greater than 3 seconds No patient symptoms were reported
== END 2022-11-24 23:59 | disposition home or self-care (01) ==
LOC: CARDOPNVT 14:47
PROVIDERS: PCP Family Medicine; Visit Provider Family Medicine
DX: R42 Dizziness and giddiness (principal)
CPT/HCPCS: 93225; 93226

== ENCOUNTER 2023-05-11 13:23 | Outpatient (CLI) | payer BC, SELFPAY ==
[2023-05-11 13:32] LABS: Abs Immature Grans 0.02 10^3/uL (0.0-0.06); Absolute Basophil Count 0.04 10^3/uL (0.0-0.2); Absolute Eosinophil Count 0.07 10^3/uL (0.0-0.7); Absolute Lymphocyte Count 2.06 10^3/uL (1.2-3.4); Absolute Monocyte Count 0.45 10^3/uL (0.1-0.8); Absolute Neutrophil Count 4.04 10^3/uL (1.2-6.7); Basophils % 0.6; HCT 42.1 % (40.0-50.0); HGB 14.7 g/dL (13.5-17.5); Immature Grans % 0.3; Lymphocytes % 30.8; MCH 30.3 pg (27.0-33.0); MCHC 34.9 % (32.0-36.0); MCV 87 fL (80-95); MPV 9.4 fL (8.0-11.0); Monocytes % 6.7; Neutrophils % 60.6; Platelet Count 235 10^3/uL (130-400); RBC 4.85 10^6/uL (4.36-5.78); RDW 12.5 % (11.8-14.1); RDW-SD 39.7 fL; WBC 6.68 10^3/uL (4.4-10.8)
[2023-05-11 14:13] LABS: ALT 34 U/L (16-63); AST 18 U/L (15-37); Albumin 4.4 g/dL (3.4-5.0); Alkaline Phosphatase 82 U/L (46-116); Anion Gap 7.5 mmol/L (3-11); BUN 14 mg/dL (7-18); Bilirubin, Total 0.4 mg/dL (0.2-1.0); CO2 28.5 mmol/L (21.0-32.0); Calcium 9.9 mg/dL (8.5-10.1); Chloride 102 mmol/L (98-107); Estimated GFR 102.55 (mL/min/1.73m2); Glucose 83 mg/dL (74-106); Potassium 3.6 mmol/L (3.5-5.1); Sodium 138 mmol/L (136-145); TSH (W/Ref FT4) 1.89 uIU/mL (0.36-3.74); Total Protein 7.9 g/dL (6.4-8.2)
== END 2023-05-11 13:24 | disposition home or self-care (01) ==
LOC: LBO 13:23
PROVIDERS: PCP Family Medicine; Visit Provider Family Medicine
DX: R42 Dizziness and giddiness (principal)
CPT/HCPCS: 36415; 80053; 84443; 85025

== ENCOUNTER 2023-10-08 19:50 | Emergency (ER) | payer BC, SELFPAY ==
[2023-10-08] VITALS (10 sets, daily range): BP systolic 130–161; BP diastolic 70–96; PULSE 68–83; RESP 15–22; TEMP 36.7; O2SAT 98
--- NOTE | 2023-10-08 19:45 | RT.EKG_ITS ---
APPROVED REPORT Exam: Resting ECG Reason for Exam: ARRHYTHMIA Patient Location: E HR:82 bpm ECG Measurements Heart Rate 82 AXIS RI 156 P 69 QRSd 113 QRS 55 QT 370 T 10 QTc 434 Conclusion Sinus rhythm...normal P axis, V-rate 60- 99 Multiple ventricular premature complexes...V complexes w/ short R-R intervls
--- NOTE | 2023-10-08 20:00 | W.ED.GENAD ---
HPI General Date/Time Provider Initiated Documentation: 10/08/23 19:55. HPI Narrative: 33 year-old male presents to ED today by POV/ambulating with a chief complaint of dizziness, palpitations with onset around 1400 today. Quality described as feels his heart rate is irregular, was in the shower when he noticed it- has had chornic episodes of dizziness for the last year- had a prior heart monitor but states no findings, no radiation to onset during exertion, syncope, chest pain, shortness of breath. Severity is described as unable to quantify Palliating factors include nothing specific attempted. Provoking factors include nothing specific. Patient not anticoagulated. Related Data Home Medications Medication Instructions Recorded Confirmed omeprazole 20 mg capsule,delayed 20 mg PO DAILY #90 caps 12/28/22 10/08/23 release Previous Rx's Medication Instructions Recorded omeprazole 20 mg capsule,delayed 20 mg PO DAILY #90 caps 12/28/22 release Allergies Allergy/AdvReac Type Severity Reaction Status Date / Time No Known Allergies Allergy Verified 10/01/23 09:28 General Stated Complaint: Arrhythmia LAUREL: 3 Review of Systems All systems reviewed & are unremarkable except as noted in HPI and below Exam Narrative Exam Narrative: GENERAL APPEARANCE: Well-nourished, non-toxic, awake and alert, atraumatic, no acute distress. SKIN: Warm, pink, dry, intact, without rashes/lesions/ulcerations. HEAD: Normocephalic, atraumatic, normal hair distribution for gender/age. EYES: Pupils PERRLA, EOMs intact without nystagmus, normal conjunctiva, no exudates on lids/lashes. ENT: Nares patent, no circumoral cyanosis, no facial swelling NECK: Supple, trachea midline, painless cervical ROM. LUNGS/CHEST: Lungs CTA bilaterally- no rhonchi/rales/wheezes diffusely, non-labored respirations, normal A/P diameter, symmetrical expansion, no chest wall deformity HEART (CV/PV): Irregular rate and rhythm without murmur, no peripheral edema, no JVD. ABDOMEN: Soft, non-distended, no guarding, no tenderness. MSK: Normal ROM, no swelling/deformity to bilateral UEs or LEs, moving all extremities without weakness, no cyanosis, spine midline without tenderness, normal curvature. NEURO: Mental Status AAOx4 - alert to person, place, time, events No facial droop, no forehead involvement. Motor: No focal weakness - strength 5/5 in bilateral UEs and LEs, proximal and distal, symmetric. Sensory: sensation intact to light touch globally. Gait normal: patient ambulated without ataxia into ED room. PSYCH: euthymic, cooperative, pleasant, appropriate speech Course Vital Signs Vital signs: Vital Signs Temperature 36.7 C 10/08/23 19:53 Pulse 83 10/08/23 19:53 Respiratory Rate 22 10/08/23 19:53 Blood Pressure 161/96 H 10/08/23 19:53 Pulse Oximetry 98 10/08/23 19:53 Temperature 36.7 C 10/08/23 19:53 Temperature Source Temporal Artery Scan 10/08/23 19:53 Pulse 83 10/08/23 19:53 Respiratory Rate 22 10/08/23 19:53 Blood Pressure 161/96 H 10/08/23 19:53 Blood Pressure Position Sitting 10/08/23 19:53 Pulse Oximetry 98 10/08/23 19:53 Oxygen Delivery Method Room Air 10/08/23 19:53 Oxygen Flow Rate 0 10/08/23 19:53 Pain Level 0 10/08/23 19:53 Medical Decision Making This dictation utilizes [id number] dictation software and may contain unedited grammatical errors. 33 y/o M presents to ED today with a chief complaint of palpitations, dizziness, acutely worse this afternoon around 1400, has happened in the past over this year, had heart monitor without findings per patient. Patient denies chest pain, denies syncope, denies shortness of breath or diaphoresis with symptoms. Patients' medical history: negative, otherwise healthy- active. 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 Pertinent exam findings / vital signs include irregular heart rhythm, no acute distress, lungs CTA, neuro intact. Differential / pathologies of concern include palpitations, heart block, anxiety, ACS. Diagnostic studies of: -CBC, CMP, Trop I, BNP, Lipase, TSH, EKG, Rhythm Strip, XR Chest. -No leukocytosis, no anemia -Mildly low potassium will replete with normal p.o. intake, mild BUN increase -TSH is elevated with a normal free T4 -Lipase within normal limits -Troponin and BNP negative, pending delta value -EKG shows sinus rhythm with PVCs, question 2nd degree heart block with some dropped beats possibly artifact overlay with PVC, consulting cardiology -XR negative Interventions of: -none, [facility] cardiology consult ED Course/Assessment/Plan: 33-year-old otherwise healthy male presents with irregular heart rate and palpitations, this is not come on with exertion, he has had symptomatic dizziness for about a year but has been worse today and this is the first time he is felt arrhythmia by checking his pulse. He does have PVCs on EKG but I do question if he has some type of heart block, delta troponin values negative, no signs of heart failure infection, chest x-ray is within normal limits, I do suspect he needs outpatient follow-up with a low risk on heart score for echocardiogram and possible further monitoring, am able to refer him to our cardiology office. Findings not consistent with ACS, HF, PNA, infectious etiology. Disposition of Arrhythmia. Patient verbalized understanding of the plan and return to ED criteria and engaged in shared decision making. Medical Records Medical records reviewed: Yes I reviewed the patient's medical records. Imaging Data Radiologic Study: Imaging: X-Ray Radiologist's impression: Exam: XR Chest Exam date and time: 10/08/2023 8:37 PM Age: 33 years old Clinical indication: Other: Arrhythmia TECHNIQUE: Imaging protocol: Radiologic exam of the chest. Views: 2 views. COMPARISON: No relevant prior studies available. FINDINGS: Lungs: Unremarkable. No consolidation. Pleural spaces: Unremarkable. No pleural effusion. No pneumothorax. Heart/Mediastinum: Unremarkable. No cardiomegaly. Bones/joints: There are findings suggesting prior resection of the distal end of the right clavicle. No definite acute fracture IMPRESSION: No acute findings. Dictated and Authenticated by: Javid No MD. Ordering:IRIS Wolff MD Lab Data Lab results reviewed: Yes I reviewed the patient's lab results. Labs: Laboratory Tests Range/Units 10/08/23 20:09 WBC (4.4-10.8) 10^3/uL 7.50 RBC (4.36-5.78) 10^6/uL 4.75 Hgb (13.5-17.5) g/dL 14.3 Hct (40.0-50.0) % 41.3 MCV (80-95) fL 87 MCH (27.0-33.0) pg 30.1 MCHC (32.0-36.0) % 34.6 RDW (11.8-14.1) % 12.7 Plt Count (130-400) 10^3/uL 240 MPV (8.0-11.0) fL 10.1 Immature Gran % 0.3 Neutrophils % 50.1 Lymphocytes % 39.9 Monocytes % 7.6 Eosinophils % 1.6 Basophils % 0.5 Nucleated RBC % (0.0-0.3) % 0.0 Absolute Neutrophils (1.2-6.7) 10^3/uL 3.76 Absolute Lymphocytes (1.2-3.4) 10^3/uL 2.99 Absolute Monocytes (0.1-0.8) 10^3/uL 0.57 Absolute Eosinophils (0.0-0.7) 10^3/uL 0.12 Absolute Basophils (0.0-0.2) 10^3/uL 0.04 Sodium (136-145) mmol/L 143 Potassium (3.5-5.1) mmol/L 3.3 L Chloride (98-107) mmol/L 104 Carbon Dioxide (21.0-32.0) mmol/L 27.5 Anion Gap (3-11) mmol/L 11.5 H BUN (7-18) mg/dL 19 H Creatinine (0.70-1.30) mg/dL 1.0 Est GFR (CKD-EPI 2020) (mL/min/1.73m2) 102.55 Glucose (74-106) mg/dL 105 Calcium (8.5-10.1) mg/dL 8.6 Magnesium (1.8-2.4) mg/dL 2.1 Total Bilirubin (0.2-1.0) mg/dL 0.2 AST (15-37) U/L 18 ALT (16-63) U/L 34 Alkaline Phosphatase (46-116) U/L 91 Troponin I (< or =60) ng/L < 50 NT-Pro-B Natriuret Pep (<300) pg/mL 141 Total Protein (6.4-8.2) g/dL 7.5 Albumin (3.4-5.0) g/dL 4.2 Lipase (16-77) U/L 56 TSH (0.36-3.74) uIU/mL 4.60 H Free T4 (0.76-1.46) ng/dL 0.80 Quality:SDOH Health Related Social Needs: No Data to Display PFSH All Active Problems (Updated 10/08/23 @ 22:47 by VINICIO Armstrong) Arrhythmia (Acute) Vertigo (Acute) Lipoma of back (Acute) Belching (Acute) Acute meniscal tear of left knee (Acute 01/26/22) BRBPR (bright red blood per rectum) (Acute) Medical History (Updated 10/08/23 @ 22:47 by VINICIO Armstrong) No significant past medical history Surgical History Left Knee repair Pt states he had a surgery to his knee about 5 or 6 years ago ().HE 8.8.13 Family History (Updated 08/29/21 @ 15:02 by Ivonne Linn NP) Other Diabetes Social History Smoking/Tobacco Use Status: Current-Occasional Tobacco Type: smokeless tobacco Smokeless tobacco user: chewing tobacco Quit status: quit date established Smoking risk assessment performed?: Yes Alcohol Intake: current Alcohol Intake frequency: a few times a week Details: occasionally has a beer, sometimes has 3 mixed drinks at a time when social Drug use: Never Substance use type: does not use Household members: significant other and other Number of Children: 1 current occupation: works for [employer] Current gender identity: male What is your relationship status?: living with partner Panel score (0-1 are the most socially isolated patients): 1 What type of physical activity do you participate in: walking Seatbelt use: sometimes Helmet use: Yes Drive intox or ride w/intox 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: No Water heater temp set <120 deg: Yes Working smoke detector in home: Yes Fire extinguisher in home: Yes Carbon monox detector in home: Yes Firearms in home: Yes (in a safe) Firearms unloaded and locked: Yes Do you feel safe at home: Yes Do you feel safe in your relationship?: Yes Discharge Plan Disposition Patient Disposition: Home Condition: Stable Discharge Details Clinical Impression: Arrhythmia Primary Care Provider: Jimy Palacios ED Provider: New Edwards Home Meds and New Rx's Prescriptions: Continued omeprazole 20 mg capsule,delayed release(DR/EC) 20 mg PO DAILY Qty: 90 3RF Discharge Instructions Instructions: Near Syncope (ED) Additional Instructions: You were seen in the emergency department for your arrhythmia and dizziness, you likely need to be seen by cardiology again for obtaining another heart monitor as well as an echocardiogram and possible treadmill stress test. I spoke with [facility] cardiology they assured me that there was nothing urgent and you did not need to stay in the hospital overnight. You exhibited no chest pain and your laboratory workup was benign, you did have mildly high thyroid-stimulating hormone level which could be contributing and I suspect you follow-up with your PCP over this. Please take [id number] potassium and magnesium supplements, try and eat a high potassium diet as you had very mildly low potassium, drink lots of fluids and stay well-hydrated. Referrals: [facility] [Provider Group] Jimy Palacios DO [Primary Care Provider] -
--- NOTE | 2023-10-08 20:15 | DI.RAD_ITS ---
Exam(s) XR CHEST 2V PA LATERAL EXAM: XR CHEST 2V PA LATERAL CLINICAL HISTORY: arrhythmia TECHNIQUE: 2D digital imaging was performed of the chest. Two images were obtained. PA and lateral views were obtained. COMPARISON: No exams were available for comparison FINDINGS: MEDIASTINUM: Normal. HEART: Normal. PULMONARY VASCULATURE: Normal. LUNGS: Clear. PLEURAL SPACE: No pleural effusion or pneumothorax. BONE:Within normal limits for the patient's age. OTHER FINDINGS:Normal. IMPRESSION: No acute pulmonary findings. DATA REPOSITORY: RADIATION DOSE DELIVERED:
[2023-10-08 20:49] LABS: Abs Immature Grans 0.02 10^3/uL (0.0-0.06); Absolute Basophil Count 0.04 10^3/uL (0.0-0.2); Absolute Eosinophil Count 0.12 10^3/uL (0.0-0.7); Absolute Lymphocyte Count 2.99 10^3/uL (1.2-3.4); Absolute Monocyte Count 0.57 10^3/uL (0.1-0.8); Absolute Neutrophil Count 3.76 10^3/uL (1.2-6.7); Basophils % 0.5; Eosinophils % 1.6; HCT 41.3 % (40.0-50.0); HGB 14.3 g/dL (13.5-17.5); Immature Grans % 0.3; Lymphocytes % 39.9; MCH 30.1 pg (27.0-33.0); MCHC 34.6 % (32.0-36.0); MCV 87 fL (80-95); MPV 10.1 fL (8.0-11.0); Monocytes % 7.6; Neutrophils % 50.1; Platelet Count 240 10^3/uL (130-400); RBC 4.75 10^6/uL (4.36-5.78); RDW 12.7 % (11.8-14.1); RDW-SD 40.2 fL
--- NOTE | 2023-10-08 21:05 | DI.VRAD_ITS ---
PROCEDURE INFORMATION: Exam: XR Chest Exam date and time: 10/08/2023 8:37 PM Age: 33 years old Clinical indication: Other: Arrhythmia TECHNIQUE: Imaging protocol: Radiologic exam of the chest. Views: 2 views. COMPARISON: No relevant prior studies available. FINDINGS: Lungs: Unremarkable. No consolidation. Pleural spaces: Unremarkable. No pleural effusion. No pneumothorax. Heart/Mediastinum: Unremarkable. No cardiomegaly. Bones/joints: There are findings suggesting prior resection of the distal end of the right clavicle. No definite acute fracture IMPRESSION: No acute findings. Dictated and Authenticated by: Javid No MD. Ordering:IRIS Wolff MD
[2023-10-08 21:14] LABS: ALT 34 U/L (16-63); AST 18 U/L (15-37); Albumin 4.2 g/dL (3.4-5.0); Alkaline Phosphatase 91 U/L (46-116); Anion Gap 11.5 mmol/L (3-11); BUN 19 mg/dL (7-18); Bilirubin, Total 0.2 mg/dL (0.2-1.0); CO2 27.5 mmol/L (21.0-32.0); Calcium 8.6 mg/dL (8.5-10.1); Chloride 104 mmol/L (98-107); Estimated GFR 102.55 (mL/min/1.73m2); Glucose 105 mg/dL (74-106); Lipase 56 U/L (16-77); Magnesium 2.1 mg/dL (1.8-2.4); NT-proBNP 141 pg/mL (<300); Potassium 3.3 mmol/L (3.5-5.1); Sodium 143 mmol/L (136-145); Total Protein 7.5 g/dL (6.4-8.2); Troponin I < 50 ng/L (< or =60)
[2023-10-08 23:21] LABS: Troponin I < 50 ng/L (< or =60)
--- NOTE | 2023-10-08 23:33 | ED.PROG_ITS ---
Date of service: 10/08/23 Time of Service: 23:34 Medical Decision Making Patient was signed out to me by my colleague Mariano, please refer to his HPI, physical exam, assessment and plan. At time of signout we are awaiting repeat troponin, repeat troponin has returned normal. Patient feels well. Patient stable for discharge. We will place referral for outpatient cardiology and echo follow-up. Patient feels well and has no symptoms of syncope or concerning red flags at this time meriting immediate admission. I had a long discussion with the patient regarding his symptoms, therapies moving forward, and the next steps. We also discussed red flags which to return the patient understands. Patient stable for discharge at this time based on current clinical assessment. I have extensively reviewed the treatment plan and discharge instructions with the patient. I have addressed all patient concerns at this time. The patient was made aware of what symptoms to monitor for that would warrant a return to the emergency department. Discussed the plan with the patient, they demonstrate verbal understanding and agreement with our assessment and plan at this time. The documentation in this chart was dictated using [employer] dictation software. Please excuse any dictation errors. Quality:[facility] Health Related Social Needs: No Data to Display Sign Out Sign Out Data: Sign Out Comment: pending delta trop for trigeminy without pain, ongoing 1 year. Spoke with [facility] cards. patient needs Irri, ECHO outpatient studies- is on list for [facility]. Encouraged better hydration and diet and multi-vitamins. Last updated by New Edwards PA at 10/08/23 22:55 Discharge Plan Disposition Patient Disposition: Home Condition: Stable Discharge Details Clinical Impression: Arrhythmia Primary Care Provider: Jimy Palacios ED Provider: New Edwards Home Meds and New Rx's Prescriptions: Continued omeprazole 20 mg capsule,delayed release(DR/EC) 20 mg PO DAILY Qty: 90 3RF Discharge Instructions Instructions: Near Syncope (ED) Additional Instructions: You were seen in the emergency department for your arrhythmia and dizziness, you likely need to be seen by cardiology again for obtaining another heart monitor as well as an echocardiogram and possible treadmill stress test. I spoke with [facility] cardiology they assured me that there was nothing urgent and you did not need to stay in the hospital overnight. You exhibited no chest pain and your laboratory workup was benign, you did have mildly high thyroid- stimulating hormone level which could be contributing and I suspect you follow- up with your PCP over this. Please take [id number] potassium and magnesium supplements, try and eat a high potassium diet as you had very mildly low potassium, drink lots of fluids and stay well-hydrated. Referrals: [facility] [Provider Group] Jimy Palacios DO [Primary Care Provider] -
--- NOTE | 2023-10-09 04:42 | NUR.NOTE ---
Pt placed on care management referral list for ECHO/Heart monitoring to be seen in 1 week by [facility] per VINICIO rankin Nursing Note:
== END 2023-10-08 23:37 | disposition home or self-care (01) ==
PROVIDERS: Emergency Provider Physician Assistant; PCP Family Medicine
DX: R55 Syncope and collapse (principal); R00.2 Palpitations; F17.290 Nicotine dependence, other tobacco product, uncomplicated
CPT/HCPCS: 00123; 36415; 80053; 83690; 93005; 99285; 71046; 83735; 83880; 84439; 84443; 84484; 85025; 93010; 99284

== ENCOUNTER 2023-10-11 11:34 | Outpatient (CLI) | payer BC, SELFPAY ==
--- NOTE | 2023-10-11 11:30 | RT.EKG_ITS ---
APPROVED REPORT Exam: Resting ECG Reason for Exam: Palpitations Patient Location: O HR:60 bpm ECG Measurements Heart Rate 60 AXIS FL 143 P 37 QRSd 108 QRS 46 QT 403 T 2 QTc 403 Conclusion Sinus rhythm...normal P axis, V-rate 50- 99 Normal Electrocardiogram
== END 2023-10-11 11:35 | disposition home or self-care (01) ==
LOC: DI.KIM 11:34
PROVIDERS: PCP Family Medicine; Visit Provider Family Medicine
DX: R00.2 Palpitations (principal)
CPT/HCPCS: 93010

== ENCOUNTER 2023-12-07 11:11 | Day surgery (SDC) | payer BC, SELFPAY ==
--- NOTE | 2023-12-06 16:06 | PDOC.DSDIS_ITS ---
Date of service: 12/07/23 Time of Service: 12:43 Discharge Plan Disposition Patient Disposition: Home Condition: Good Discharge Details Reason For Visit: EGD Attending Provider: Marito Abad Primary Care Provider: Jimy Palacios Home Meds and New Rx's Prescriptions: Continued omeprazole 20 mg capsule,delayed release(DR/EC) 20 mg PO DAILY Qty: 90 3RF Discharge Instructions Instructions: Upper Endoscopy (DC) Additional Instructions: Stuart, we were able to complete your upper endoscopy today without much difficulty. Everything appears normal to the naked eye. I did do multiple biopsies in an effort to see if we could find anything that would explain your symptoms. It will take a week or so for the biopsy results to come back. At that point, I will reach out to you and let you know my next recommendations. If the biopsies are normal, I suspect a gastric emptying study would be the next best choice. In the meantime, continue using your omeprazole. If you have any questions at all please do not hesitate to ask at any point. 1. If tolerated, consume a soft, low fiber diet for 1-2 days. 2. Do not drive, drink alcohol, operate machinery, make critical decisions, or do activities that require coordination or balance for 24 hours. 3. You may experience a sore throat for 24 to 48 hours. You may use throat lozen ges or gargle with warm salt water to relieve the discomfort. 4. Because air was put into your stomach during the procedure, you may experience some belching. 5. Go directly to the emergency room if you notice any of the following: Develop chills (warm to touch), or if you have a thermometer and your temperature is above 101 Difficulty breathing or difficultly swallowing Persistent vomiting Severe abdominal pain, other than gas cramps Severe chest pain Black, tarry stools Any bleeding ? exceeding one tablespoon 6. Call your physician if the site where your intravenous was started becomes red, swollen, painful, and warm to touch. 7. Your physician has reviewed your pre-procedure medications. Please continue to take those medications as previously ordered. You will be given specific information/education regarding any changes to your medications before leaving. Activity:: Activity as Tolerated Diet:: As Tolerated Discharge Orders Discharge Orders: Discharge Order (Routine); Ordered 12/06/23 Ordered By: Marito Abad DS: Diagnosis Discharge Diagnosis (1) Belching: Status: Acute Asessment and Plan: Follow-up on biopsy results
--- NOTE | 2023-12-06 16:07 | W.PM.ENDDOP ---
Date of service: 12/07/23 Time of Service: 12:44 Endoscopy Report DATE OF PROCEDURE: 12/07/23 PRE-OP DIAGNOSIS: Belching POST-OP DIAGNOSIS: same PROCEDURE: EGD with biopsies SURGEON: Marito Abad ANESTHESIA TYPE: General:No Airway ESTIMATED BLOOD LOSS: 5 PATHOLOGY: other (Random biopsies of duodenum, gastric antrum, gastric body, esophagus) COMPLICATIONS: None DISPOSITION: same day INDICATIONS: Enrique is a 33-year-old male with frequent belching and dyspepsia symptoms. PROCEDURE START TIME: : PROCEDURE END TIME: :32 FINDINGS: Grossly normal-appearing EGD, with GE junction measuring 37 cm from the incisors PROCEDURE DESCRIPTION: After the initiation of monitored anesthetic care, and with the assistance of a bite block, I advanced a standard gastroscope through the mouth past the hypopharynx and into the esophagus.? Under the direct vision of the scope, I advanced down the esophagus towards the stomach.? The upper and midesophagus were normal-appearing. The Z-line was mostly regular, with the GE junction measuring 37 cm from the incisors. Advance the camera down into the stomach. I insufflated the stomach and perform retroflexion. I did not see any significant hiatal hernia. There is no evidence of any gastritis or peptic ulcer disease. The stomach was insufflated into the rugae were obliterated. Incisura angularis was normal. The gastric antrum and pylorus appeared normal. I navigated across the pylorus into the duodenum which also appeared normal. Given the uncertainty of the diagnosis, I did perform random biopsies of the duodenum. I brought the camera back up into the stomach and perform random biopsies of the gastric antrum and body. All biopsies were performed with cold forceps without any issues. There was minimal bleeding from the sites. I brought the camera back up into the esophagus and examined it once again. I did not see any signs of strictures, webs, rings, or esophageal diverticula. I did perform some random biopsies of the esophagus using cold forceps as well. I then withdrew the camera, the patient was allowed awaken from the anesthetic and transferred to the recovery unit.
[2023-12-07 11:21] VITALS: BP 135/80; PULSE 79; RESP 16; TEMP 36.3; O2SAT 97
[2023-12-07] MEDS: Lactated Ringers 1,000 ML 80 ML IV (11:43)
--- NOTE | 2023-12-07 11:50 | W.ANESPRE ---
General Info Date of Service Date Performed: 12/07/23 Height: 6 ft 1 in Weight: 110.6 kg Body Mass Index (BMI): 32.1 Surgical Procedure: Operation Date: 12/07/23 12:05 Proposed Procedure Side Surgeon p Gastroscopy Marito Abad MD Meds Allergies and Home Medications Allergies Allergy/AdvReac Type Severity Reaction Status Date / Time No Known Allergies Allergy Verified 12/07/23 11:21 Home Medication Medication Instructions Recorded omeprazole 20 mg capsule,delayed 20 mg PO DAILY #90 caps 12/28/22 release Current Visit Medications: Current Medications Generic Name Dose Route Start Last Admin Trade Name Freq PRN Reason Stop Dose Admin Hyoscyamine Sulfate 0.125 mg 12/06/23 16:07 Hyoscyamine 0.125 Mg Sl/Oral/Chew SL 01/05/24 16:06 DIRECTED PRN Ringer's Solution 1,000 mls @ 80 mls/hr 12/07/23 06:00 12/07/23 11:43 IV 12/07/23 23:59 80 mls/hr INFUSION RAIMUNDO Administration IV Miscellaneous Supplies 1 each 12/07/23 06:00 Iv Access IV 12/07/23 23:59 DIRECTED RAIMUNDO Ondansetron HCl 4 mg 12/06/23 16:07 Ondansetron 4 Mg/2 Ml Vial IVP 01/05/24 16:06 Q4H PRN PRN Nausea / Vomiting Sodium Chloride 0 ml 12/07/23 06:00 Normal Saline Flush 10 Ml Syr IV 12/07/23 23:59 PRN PRN Sodium Chloride 0 ml 12/07/23 06:00 Normal Saline 10 Ml Vial IJ 12/07/23 23:59 DIRECTED PRN Sterile Water 0 ml 12/07/23 06:00 Water,Injection,Sterile 10 Ml Vial IJ 12/07/23 23:59 DIRECTED PRN PFSH Active Problems Active Problems: Problem Status Onset Code PVC (premature ventricular contraction) I49.3 Vertigo R42 Lipoma of back D17.1 Belching R14.2 Acute meniscal tear of left knee 01/26/22 S83.207A BRBPR (bright red blood per rectum) K62.5 Medical History Medical History No significant past medical history Surgical History Surgical History Left Knee repair Pt states he had a surgery to his knee about 5 or 6 years ago ().HE 8.8.13 Tobacco Smoking/Tobacco Use Status: Former Tobacco Use Smokeless tobacco user: chewing tobacco Alcohol Alcohol Intake: current Alcohol intake frequency: a few times a week Details: occasionally has a beer, sometimes has 3 mixed drinks at a time when social Substance Use Substance use: Never Substance use type: does not use Vital Signs and Lab Results Vital Signs Most Recent Vital Signs in EMR: Most Recent Vital Signs Temp Pulse Resp BP Pulse Ox 36.3 C L 79 16 135/80 97 12/07/23 11:21 12/07/23 11:21 12/07/23 11:21 12/07/23 11:21 12/07/23 11:21 Lab Results Blood Type / Crossmatch: No Data to Display Complete Blood Count: No Data to Display Complete Metabolic Panel: No Data to Display Liver Function Panel: No Data to Display Coagulation Panel: No Data to Display Cardiac Panel: No Data to Display Arterial Blood Gas: No Data to Display Venous Blood Gas: No Data to Display Pancreas Panel: No Data to Display Thyroid Panel: No Data to Display Infectious Disease: No Data to Display Blood Cultures: No Data to Display Toxicology Panel: No Data to Display Imaging and Studies Imaging and Studies Study information below may be from another EMR and interpreted by another provider. Please see original notes in EMR for more complete details. EKG Summary: DATE/TIME OF SERVICE: 10/11/23 1139 : 1990 PERFORMING LOCATION: [facility]PROVED REPORT Exam: Resting ECG Reason for Exam: Palpitations Patient Location: O HR:60 bpm ECG Measurements Heart Rate 60 AXIS MI 143 P 37 QRSd 108 QRS 46 QT 403 T2 QTc 403 Conclusion Sinus rhythm...normal P axis, V-rate 50- 99 Normal Electrocardiogram Carotid Artery Summary:: 04/03/23 IMPRESSION: 1. No evidence of hemodynamically significant right sided carotid stenosis. 2. Elevated velocities in the proximal left ICA without evidence of plaque. Anesthesia Assessment and Plan Anesthesia History Personal History: No History of Anesthesia Complications Family History: No Family History of Anesthesia Complications Exercise Tolerance Exercise Tolerance: Metabolic Equivalents>4 Pertinent Negatives Pertinent Negatives: No Symptoms of GERD, No Major Cardiovascular Symptoms or Complaints and No Major Pulmonary Symptoms or Complaints Cardiac & Pulmonary Exam Cardiac Exam: Normal S1/S2 Heart Sounds Pulmonary Exam: Clear Bilateral Breath Sounds Implantable Cardiac Device Does patient have a Pacemaker or an ICD?: No Airway Exam Known Difficult Airway: No Mallampati Class: 1 Mouth Opening: Normal (> 3cm) Thyromental Distance: Greater than 3 cm Neck Range of Motion: Full ROM Neck Circumference: Normal Teeth Condition: Normal Dentition ASA Classification ASA Score: ASA 2 Emergency Case?: No NPO Status NPO Status: NPO Clears >2 hours, Solids >8 hours Anesthesia Plan Resuscitation Status: Full Code Anesthesia Technique: General Anesthesia Airway Planned: Natural Airway Monitors Used: Standard Monitors
[2023-12-07 11:54] VITALS: BMI 32.1
--- NOTE | 2023-12-07 12:30 | STOM_PTH ---
PATIENT: Stuart Leslie LOC: [facility] U#:[id number] AGE/SX: 33/M ROOM: RE12/07/[address]: Marito Abad MD : 1990 BED: DIS: 12/07/2023 SPEC #: [id number] RECD: 12/07/23 13:17 STATUS: ALIYA RE #: [id number] ANAT: 12/07/23 12:[address]: Marito Abad DEPT: Surgical Specimen RECD BY: Hue Turner ENTERED: 12/07/23 13:18 SP TYPE: STOMACH OTHR DR: Jimy Palacios DO Tissues: 1 - BIOPSY BOWEL 2 - STOMACH BIOPSY 3 - STOMACH BIOPSY 4 - ESOPHAGUS BIOPSY Procedures: GROSS AND MICRO LEVEL 4 Comments: [id number]
[2023-12-07 12:42] VITALS: BP 119/77; PULSE 95; RESP 18; TEMP 37.1; O2SAT 96
--- NOTE | 2023-12-07 13:09 | W.ANESPOSTOP ---
Postoperative Evaluation Date, Time and Location Date Performed: 12/07/23 Time Performed: 13:02 Patient Location: Day Surgery Unit Vital Signs Most Recent Imported Vital Signs: Most Recent Vital Signs Temp Pulse Resp BP Pulse Ox 37.1 C 95 H 18 119/77 96 12/07/23 12:42 12/07/23 12:42 12/07/23 12:42 12/07/23 12:42 12/07/23 12:42 Pain Score Most Recent Pain Score: Most Recent Pain Score Pain Level 0 12/07/23 12:42 Assessment Mental Status: Awake (Alert & Oriented to Patient Baseline) Airway and Respiratory Function: Patent airway with normal (patient baseline) respiratory exam Cardiovascular Function: Hemodynamically Stable Hydration Status: Adequately Hydrated Nausea & Vomiting: No Nausea or Vomiting Pain: Pt. Denies Any Pain Peripheral Nerve Block: Patient did not receive a nerve block
[2023-12-07 13:11] VITALS: BP 113/72; PULSE 71; RESP 16; TEMP 36.7; O2SAT 97
== END 2023-12-07 13:20 | disposition home or self-care (01) ==
LOC: SUR 11:11
PROVIDERS: PCP Family Medicine; Visit Provider Surgery
PROC: 0DJ68ZZ Inspection of Stomach, Via Natural or Artificial Opening Endoscopic (ICD-10-PCS; CPT 43235; principal; 2023-12-07 12:00)
DX: R14.2 Eructation (principal); K29.70 Gastritis, unspecified, without bleeding
CPT/HCPCS: 43239; 88305; J2001; J2704